=== PATIENT | female | born 1965 | race Caucasian/White ===

== ENCOUNTER 2017-12-12 16:44 | Emergency (ER) | payer OTHER ==
[2017-12-12 16:52] VITALS: BP 140/83; PULSE 74; TEMP 97.7; BMI 26.8
[2017-12-12] MEDS ORDERED: IBUPROFEN 600 MG TABLET (FP) PO ONE ×2 (17:39→18:00)
--- NOTE | 2017-12-12 17:39 | PDOC ---
History of Present Illness - General Chief Complaint: Pain, Acute Stated Complaint: LEG PAIN Time Seen by Provider: 12/12/17 17:17 History Source: Patient Exam Limitations: No Limitations - History of Present Illness Initial Comments: CHIEF COMPLAINT: 52 y/o afebrile female with no significant PMH c/o right upper leg pain s/p slip and fall 3 months ago. HISTORY OF PRESENT ILLNESS: patient states she slipped and fell 3 months ago. Has had right thigh pain ever since that is intermittent. She hasn't taken anything for it. She has not seen a doctor. She can walk. She denies numbness /tingling in LEs, decreased ROM. Vital signs on arrival are within normal limits. REVIEW OF SYSTEMS: GENERAL/CONSTITUTIONAL: No fever/chills. No weakness. No weight change. GENITOURINARY: No dysuria, frequency, or change in urination. MUSCULOSKELETAL: +right thigh pain. No joint or muscle swelling or pain. No neck pain. SKIN: No rash or easy bruising. NEUROLOGIC: No headache, vertigo, loss of consciousness, or loss of sensation. PHYSICAL EXAM: VITAL_SIGNS: within normal limits GENERAL_APPEARANCE: alert, cooperative, mild obvious discomfort with ambulation. Patient can ambulate with mild limp. MENTAL_STATUS: speech clear, oriented X 3, responds appropriately to questions. NEURO: motor intact and sensory intact in injured extremity. EXTREMITIES: Full flexion and extension of right knee. Equal straight leg raise b/l against resistance. No swelling, erythema, warmth or bulging to affected extremity. Some TTP of right distal quad muscle without palpable bulging or deformities. No right knee joint TTP or instability. SKIN: warm, dry, good color. Past History - Past Medical History Allergies/Adverse Reactions: Allergies Allergy/AdvReac Type Severity Reaction Status Date / Time No Known Allergies Allergy Verified 12/12/17 16:49 Home Medications: Ambulatory Orders Ibuprofen 600 mg PO Q6H #30 tablet 12/12/17 - Family Disease History Family Disease History: Other: Mother (mother has diarrhea) - Suicide/Smoking/Psychosocial Hx Smoking Status: No Smoking History: Never smoked Number of Cigarettes Smoked Daily: 0 *Physical Exam - Vital Signs Last Vital Signs Temp Pulse Resp BP Pulse Ox 97.7 F 74 16 140/83 100 12/12/17 16:49 12/12/17 16:49 12/12/17 16:49 12/12/17 16:49 12/12/17 16:49 Medical Decision Making - Medical Decision Making A/P: 52 y/o female with chronic right leg injury. Will give PO motrin in the ER. Will provide a referral for Ortho follow up and strongly encouraged her to f/u sooner rather than later for possible PT and MRI. The patient verbalizes understanding of all instructions, has no further questions and is awaiting discharge. *DC/Admit/Observation/Transfer Diagnosis at time of Disposition: Leg pain, right - Discharge Dispostion Disposition: HOME Condition at time of disposition: Good - Referrals Referrals: Armani Calabrese MD [Staff Physician] - (Call Thursday) - Patient Instructions Printed Discharge Instructions: DI for Leg Pain, How To Perform RICE (Rest, Ice , Compress, Elevate) Additional Instructions: Discharge Instructions: -Please use PORFIRIO bandage for comfort -A prescription for pain medication has been sent to your pharmacy; please take with food -Follow RICE instructions provided in your discharge paperwork -Call Dr. Calabrese on Thursday and schedule follow up appointment Instrucciones de descarga: -Por favor use vendaje PORFIRIO para mayor comodidad - Minnie receta para medicamentos para el dolor aldrich sido enviada a evans farmacia; por favor tome con la comida -Siga las instrucciones de RICE provistas en evans documentacin de descarga Llame al Dr. Calabrese el y programe minnie clarita de seguimiento Print Language: EQUATORIAL GUINEAN - Post Discharge Activity
== END 2017-12-12 18:10 | disposition home or self-care (01) ==
LOC: JER 16:44 → JERFT 16:44
DX: S79.821A Other specified injuries of right thigh, initial encounter (principal); W01.0XXA Fall on same level from slipping, tripping and stumbling without subsequent striking against object, initial encounter; Y93.89 Activity, other specified; Y92.9 Unspecified place or not applicable; Y99.8 Other external cause status
CPT/HCPCS: 99281-25

== ENCOUNTER 2019-05-12 12:44 | Emergency (ER) | payer OTHER ==
[2019-05-12] MEDS ORDERED: DEXAMETHASONE LIQUID 0.5 MG/5 ML PO ONE (12:53)
[2019-05-12] MEDS ORDERED: IBUPROFEN 600 MG TABLET (FP) PO ONE ×2 (12:53→13:34)
--- NOTE | 2019-05-12 12:53 | PDOC ---
Rapid Medical Evaluation Time Seen by Provider: 05/12/19 12:50 Medical Evaluation: Allergies Allergy/AdvReac Type Severity Reaction Status Date / Time No Known Allergies Allergy Verified 12/12/17 16:49 05/12/19 12:51 CC: sore throat x3 days PE: OP mildly erytehmatous. Uvula midline. No trismus. Orders: rapid strep, decadron, motrin The patient will proceed to ED for continued evaluation. Discharge Disposition - Diagnosis Pharyngitis - Referrals - Patient Instructions - Post Discharge Activity
[2019-05-12 12:57] VITALS: TEMP 98.1; BMI 28.5
[2019-05-12] MEDS ORDERED: DEXAMETHASONE SOD PHOSPHATE 10 MG/1 ML VIAL ONE (13:34)
[2019-05-12 13:45] VITALS: PULSE 74
--- NOTE | 2019-05-12 14:06 | PDOC ---
History of Present Illness - General Chief Complaint: Sore Throat Stated Complaint: PAIN Time Seen by Provider: 05/12/19 12:50 History Source: Patient Exam Limitations: No Limitations - History of Present Illness Initial Comments: 05/12/19 14:00 HPI 53 YOF with no sig medical history presenting with sore throat x 3 days, a/w difficulty swallowing. +sick contact, child with fever and URI sx. Denies fever, chills, chest pain, SOB, palpitation, dizziness, weakness, N, V, D , abdominal pain, bladder and bowel problems, focal weakness/paresthesias, leg swelling/pain, rash. No travel. No new changes in medications. No suspicious food intake Allergies: None Past Medical History/PSH: as above Social history: Lives with family. No tobacco, ETOH or drug use. Meds: none Review of systems Constitutional: no fevers or chills. No weakness HEENT: +sore throat. +odynophagia. no headache or dizziness. No congestion. No visual/hearing disturbances. no eye pain or ear pain. CVS: no cp or syncope. Resp: no sob. No cough. Gastrointestinal: no abdominal pain, nausea, vomiting, diarrhea. Genitourinary: no urinary sx, hematuria. MUSCULOSKELETAL: No joint pain and swelling. No neck or back pain. SKIN: no redness or skin changes, no discharge, no rash. No wounds. Hematologic: no easy bruising/bleeding. NEUROLOGIC: No headache, dizziness, LOC or altered mental status. No weakness, numbness or tingling. Allergic/Immunologic: no allergies All other systems reviewed and negative, or as documented in HPI. Physical exam General: Well appearing, awake and alert, NAD. HEENT: NCAT, PERRL, EOMI, clear conjunctiva, anicteric, moist mucus membranes, oropharynx with left soft palate, otherwise clear.. Airway patent, normal phonation. Uvula midline. no tonsillar hypertrophy. No sinus tenderness, TM clear, no pinna tenderness to manipulation. Neck: neck supple, FROM Resp: CTAB, normal and even respirations, no respiratory distress CVS: RRR, no murmurs, 2+ peripheral pulses throughout, no peripheral edema Abdomen: soft, NTND, no rebound or guarding. Back: nontender, normal inspection and ROM MSK: no edema, SCHULTZ x4, ROM intact. No clubbing or cyanosis. normal bulk and tone. Extremities: no calf tenderness Neuro: alert, oriented appropriately; no focal neurologic deficits Psych: Calm and cooperative Skin: warm and well perfused, cap refill <2 sec, normal color, no rash or skin discoloration. 05/15/19 10:02 Past History - Past Medical History Allergies/Adverse Reactions: Allergies Allergy/AdvReac Type Severity Reaction Status Date / Time No Known Allergies Allergy Verified 05/12/19 12:53 Home Medications: Ambulatory Orders NK [No Known Home Medication] 05/12/19 Cardiac Disorders: No COPD: No Diabetes: No - Psycho Social/Smoking Cessation Hx Smoking Status: No Smoking History: Never smoked Number of Cigarettes Smoked Daily: 0 *Physical Exam - Vital Signs Last Vital Signs Temp Pulse Resp BP Pulse Ox 98.1 F 74 18 195/102 H 100 05/12/19 12:52 05/12/19 13:44 05/12/19 13:44 05/12/19 13:44 05/12/19 13:44 Heart Score/ECG Review #1 ECG reviewed & interpreted by me at: 13:00 General ECG Interpretation: Sinus Rhythm, Normal Rate, Normal Intervals 05/12/19 14:09 EKG normal sinus rhythm 82 bpm, no interval abnormalities, narrow QRS, ST and T wave segments and morphology normal. Nonspecific T wave abnormalities ED Treatment Course - Medications Given in the ED: ED Medications Discontinued Medications Generic Name Dose Route Start Last Admin Trade Name Freq PRN Reason Stop Dose Admin Dexamethasone 10 mg 05/12/19 12:53 05/12/19 13:38 Decadron Liquid - PO 05/12/19 12:54 10 mg ONCE ONE Administration Ibuprofen 600 mg 05/12/19 12:53 05/12/19 13:38 Motrin - PO 05/12/19 12:54 600 mg ONCE ONE Administration Medical Decision Making - Medical Decision Making 05/12/19 14:06 Vital Signs Temp Pulse Resp BP Pulse Ox 98.1 F 74 18 195/102 H 100 05/12/19 12:52 05/12/19 13:44 05/12/19 13:44 05/12/19 13:44 05/12/19 13:44 VS notable for HTN, likely pain related. no fever, nontoxic appearing. no tachy normal respirations, airway patent, breathing comfortably strep test neg, so not strep infection, pharyngitis likely viral hydration, analgesia, given dexamthesone and nsaids/tylenol for analgesia BP noted to be elevated here, on recheck 190s/100s, otherwise asymptomatic needs clinical recheck with primary, no indication to start meds today pain controlled diet and exercise advised DC stable condition, hydration, supportive care and rest. HTN recheck Pt to be discharged in stable condition. Patient made aware of clinical impression, treatment recommendations and disposition plan, return precautions discussed (including but not limited to new or persistent/worsening symptoms, pain, fevers, or signs of infection, chest pain, respiratory distress, inability to tolerate oral intake, dehydration, syncope, or neurologic changes) . Follow up with PMD as recommended, follow up information provided, take medications as instructed for duration of time. continue with supportive care, avoid triggers and precipitants. All questions answered to patient's satisfaction and expressed understanding and comfort with this. At the time of discharge, the patient is alert, clinically improved, tolerating po and verbalizes understanding of instructions, satisfied with the care received and felt comfortable with the plan. Patient does not suffer from an acute life- threatening medical condition at this time and is safe for outpatient follow- up. 05/12/19 14:36 Discharge - Discharge Information Problems reviewed: Yes Clinical Impression/Diagnosis: Pharyngitis Qualifiers: Pharyngitis/tonsillitis etiology: unspecified etiology Qualified Code(s): J02.9 - Acute pharyngitis, unspecified Hypertension Qualifiers: Hypertension type: unspecified Qualified Code(s): I10 - Essential (primary) hypertension Condition: Good Disposition: HOME - Admission No - Follow up/Referral Referrals: [facility] [place] [Provider Group] [facility] [Provider Group] - Patient Discharge Instructions Patient Printed Discharge Instructions: Sore Throat, Essential Hypertension, DI for Viral Pharyngitis Additional Instructions: your strep test is negative, this is likely viral infection. salt water gargles, 1-2 spoonful of honey and warm lemon tea is appropriate as well for soothing qualities for sore throat/cough. minimize spread of infection given contagious nature, and cover your mouth and wash your hands adequately with soap and water. Stay well hydrated and rest. Cool air - walk around outdoors in the evening. May also try hot shower steam. This can alleviate the congestion and cough. You can also use Riccola - dual action with lemon/honey to soothe your throat and cough. Return precautions include respiratory distress, difficulty breathing, cyanosis , chest pain, lethargy, confusion, dehydration, high fevers or pain. Your blood pressure is noted to be high you need a clinical recheck with a primary care doctor to establish if you have high blood pressure issues, make sure to watch her diet including salt intake fatty foods and exercise regularly to reduce it. There is no indication to treat at this time as you need a clinical recheck and close monitoring with eye doctor. ------- evans prueba de estreptococo es negativa, es probable que sea minnie infeccin viral. Las grgaras de agua salada, 1-2 cucharadas de miel y t de limn tibio tambin son apropiadas para calmar las cualidades de dolor de garganta / tos. minimice la propagacin de la infeccin aileen la naturaleza contagiosa, y cbrase la boca y lvese las jayde adecuadamente con agua y jabn. Mantente nik hidratado y descansa. Aire fresco: camine al aire gordon por la noche. Tambin puede probar el vapor de la ducha caliente. [place] puede aliviar la congestin y la tos. Tambin puede usar Riccola: accin dual con limn / miel para calmar la garganta y la tos. Las precauciones de retorno incluyen dificultad respiratoria, dificultad para respirar, cianosis, dolor en el pecho, letargo, confusin, deshidratacin, fiebre sharmin o dolor. Se observa que evans presin arterial es sharmin, necesita minnie revisin clnica con un mdico de atencin primaria para determinar si tiene problemas de presin arterial sharmin, asegrese de vigilar evans dieta, incluidos los alimentos grasos de ingesta de ilana, y hacer ejercicio regularmente para reducirla. No hay indicaciones para tratar en truong momento, ya que necesita minnie revisin clnica y minnie estrecha monitorizacin con un oftalmlogo. Print Language: ARMENIAN - Post Discharge Activity
[2019-05-12 14:37] VITALS: BP 191/102
--- NOTE | 2019-05-12 15:09 | EKG ---
Test Reason : Blood Pressure : / mmHG Vent. Rate : 082 BPM Atrial Rate : 082 BPM P-R Int : 148 ms QRS Dur : 086 ms QT Int : 370 ms P-R-T Axes : 071 006 024 degrees QTc Int : 432 ms SINUS RHYTHM WITH OCCASIONAL PREMATURE VENTRICULAR COMPLEXES BIATRIAL ENLARGEMENT LEFT VENTRICULAR HYPERTROPHY NONSPECIFIC T WAVE ABNORMALITY ABNORMAL ECG WHEN COMPARED WITH ECG OF 13-JUL-2009 08:28, PREMATURE VENTRICULAR COMPLEXES ARE NOW PRESENT NONSPECIFIC T WAVE ABNORMALITY, WORSE IN INFERIOR LEADS NONSPECIFIC T WAVE ABNORMALITY NOW EVIDENT IN LATERAL LEADS Confirmed by BEAR DANIEL MD ([id number]) on 05/12/2019 3:09:07 PM Referred By: Confirmed By:BEAR DANIEL MD
== END 2019-05-12 14:47 | disposition home or self-care (01) ==
LOC: JER 12:44
DX: J02.9 Acute pharyngitis, unspecified (principal); I10 Essential (primary) hypertension
CPT/HCPCS: 87070; 87880; 93005; 93010; 99282-25

== ENCOUNTER 2021-04-10 21:00 | Emergency (ER) | payer OTHER ==
[2021-04-10 21:12] VITALS: BP 140/78; PULSE 90; TEMP 98.3; BMI 30.5
[2021-04-10] MEDS ORDERED: IBUPROFEN 600 MG TABLET (FP) PO ONE ×3 (22:34→22:44)
== END 2021-04-10 22:51 | disposition home or self-care (01) ==
LOC: JER 21:00
DX: S93.401A Sprain of unspecified ligament of right ankle, initial encounter (principal); W19.XXXA Unspecified fall, initial encounter; Y92.9 Unspecified place or not applicable
CPT/HCPCS: 73610-TC-RT-FY; 73630-TC-RT-FY; 99284-25